=== PATIENT | male | born 1950 | race Caucasian/White ===

== ENCOUNTER 2017-11-20 07:35 | Day surgery (SDC) | payer MEDICARE, OTHER ==
[~2017-11-20] VITALS: Ht 172.7 cm; Wt 97.5 kg
[~2017-11-20 07:35] MED LIST: AMLODIPINE BESYL5 MG PO; CIALIS20 MG PO; DAILY VITAMIN1 EAC2 PO; ELIQUIS5 MG PO; FISH OIL CONC1000 M1 PO; GLUCOSAMINE1000 MG PO; LISINOPRIL5 MG PO; LOSARTAN POTAS100 MG PO; LOSARTAN POTASS50 MG PO; METOPROLOL SUCC50 MG PO; METOPROLOL TART50 MG PO; NORCO 5-325 TA1 EACH PO; SULFAMETHOXAZO1 EAC1 PO; TAMSULOSIN HCL0.4 MG PO
[2017-11-20] MEDS ORDERED: AMLODIPINE BESYL5 MG PO (07:53)
[2017-11-20] MEDS ORDERED: LOSARTAN POTASS25 MG PO (07:54)
--- NOTE | 2017-11-20 09:13 | NUR ---
11/20/17 0913 Alisa Arteaga TO PACU, RESP EVEN UNLABORED.
--- NOTE | 2017-11-20 14:24 | NUR ---
PT IN FOR EGD FOLLOW UP TO PREVIOUS HILL REPAIR. SUPPORTED BY HIS LATESHA, AND BOTH SEEMED PREPARED. FEW QUESTONS, PT REQUESTED PRAYER. WILL FOLLOW NEEDED
--- NOTE | 2017-11-22 18:32 | OR ---
[facility] [address] [place], [place] [address] Signed DATE OF OPERATION: 11/20/2017 SURGEON: Estela Welch MD PREOPERATIVE DIAGNOSES: 1. Known Torrez's esophagus, last upper endoscopy 2011 without dysplasia. 2. History of Hill posterior gastropexy 2004. No clinical complaints of reflux. POSTOPERATIVE DIAGNOSES: 1. Torrez's esophagus and distal esophagus and separate islands of Torrez's esophagus at 17 cm. 2. Somewhat dysmorphic flap valve. 3. Mild gastritis. PROCEDURE: Esophagogastroduodenoscopy with biopsy. ANESTHESIA: Intravenous sedation, fentanyl 100 mcg, Versed 3 mg. INDICATION: This 66-year-old white man is a patient of Dr. Dorado and known to me from the past having undergone Hill repair 13 years ago for intractable reflux and associated Torrez's esophagus. He has no reflux symptoms at this time. He underwent upper endoscopy for surveillance of his Torrez's esophagus last in 2011. He has no associated dysphagia or hematemesis. He has been doing a low FODMAP diet with good benefit (self-directed). He is here for surveillance regarding his Torrez's epithelium. Understand the risks of bleeding, infection, and perforation related to upper endoscopy. He wishes to proceed. FINDINGS: He clearly had Torrez's esophagus in the distal portion as well as an island of Torrez's at 17 cm from the incisors. The flap valve was somewhat dysmorphic and not a typical robust flap valve I would have expected. The stomach had mild gastritis. There was no sign of gastric outlet obstruction or duodenitis. CLOtest was negative. DESCRIPTION OF PROCEDURE: The patient was brought to the endoscopy suite and placed in lateral decubitus position after undergoing topical Hurricaine spray hypopharyngeal anesthesia. A bite block was placed. An Olympus video upper endoscope was passed by hypopharynx after satisfactory Electronically Signed By: ESTELA WELCH MD 11/22/17 1604 PATIENT NAME: NIMO THORNE OPERATIVE REPORT DATE OF : 52 REPORT #: [id number] PHYSICIAN: ESTELA WELCH MD PCP: RICHIE DORADO DO REPORT IS CONFIDENTIAL AND NOT TO BE RELEASED WITHOUT AUTHORIZATION [facility] [address] [place], [place] [address] Signed sedation. The vocal cords appeared normal and scope was advanced to the esophagus. Throughout its length, it was normal except in the distal portion where Torrez's epithelium was clearly identified. The scope was passed into the stomach, which was insufflated with air. Excess gastric juices were suctioned free. There was no sign of bile. Rugal folds were normal. Antral motility was normal. The pylorus was normal. Scope was passed through into the duodenum, which appeared normal. Biopsies were taken of the duodenum to assess for celiac disease. The scope was then withdrawn and biopsy was then taken of the antrum for both KAUSHIK and pathologic testing. Retroflexed views undertaken showing a flap valve, but somewhat dysmorphic compared to what I would have expected. The scope was straightened and withdrawn a bit more and then biopsies taken multiply in the area of the distal esophagus confirming Torrez's esophagus. Narrow band imaging was used as well. The scope was then withdrawn to approximately 17 cm where an island of Torrez's epithelium was noted. This was multiply biopsied as well. The scope was carefully withdrawn with findings of concern. The patient was then taken to recovery room in good condition. CONCLUDING DIAGNOSIS: Persistent Torrez's esophagus in the distal portion and island of Torrez's esophagus at 17 cm from incisors. There is no gross evidence of neoplasm. We will await pathology reports. PLAN: He will return to see me in approximately a month. We will review his pathology reports then an outline of plan for followup. MD AYANA Reaves/ILSAL /[id number] cc: Richie Dorado DO Copies: RICHIE DORADO DO Electronically Signed By: ESTELA WELCH MD 11/22/17 183 PATIENT NAME: NIMO THORNE OPERATIVE REPORT DATE OF : 52 REPORT #: [id number] PHYSICIAN: ESTELA WELCH MD PCP: RICHIE DORADO DO REPORT IS CONFIDENTIAL AND NOT TO BE RELEASED WITHOUT AUTHORIZATION [facility] [address] [place] [address] [place], [place] [address] Signed ~ Electronically Signed By: ESTELA WELCH MD 04/15/18 1832 PATIENT NAME: NIMO THORNE DEVON OPERATIVE REPORT DATE OF : 52 REPORT #: [id number] PHYSICIAN: ESTELA WELCH MD PCP: RICHIE DORADO DO REPORT IS CONFIDENTIAL AND NOT TO BE RELEASED WITHOUT AUTHORIZATION
== END 2017-11-20 09:45 | disposition home or self-care (01) ==
LOC: OPS 07:35 → DS 07:35 → OPS 08:30
PROVIDERS: Surgery
PROC: 0DB78ZX Excision of Stomach, Pylorus, Via Natural or Artificial Opening Endoscopic, Diagnostic (ICD-10-PCS; 2017-11-20)
PROC: 0DB58ZX Excision of Esophagus, Via Natural or Artificial Opening Endoscopic, Diagnostic (ICD-10-PCS; 2017-11-20)
PROC: 0DB98ZX Excision of Duodenum, Via Natural or Artificial Opening Endoscopic, Diagnostic (ICD-10-PCS; principal; 2017-11-20 08:30)
DX: K22.70 Barrett's esophagus without dysplasia (principal); K29.50 Unspecified chronic gastritis without bleeding; K21.0 Gastro-esophageal reflux disease with esophagitis; G47.30 Sleep apnea, unspecified; I48.91 Unspecified atrial fibrillation; Z98.890 Other specified postprocedural states; Z99.89 Dependence on other enabling machines and devices; Z79.899 Other long term (current) drug therapy
CPT/HCPCS: 88305; 99153; G0500; J2250; J3010; J7120

== ENCOUNTER 2018-12-19 09:38 | Emergency (ER) | payer MEDICARE, OTHER ==
[~2018-12-19] VITALS: Ht 172.7 cm; Wt 97.5 kg
[~2018-12-19 09:38] MED LIST changes: +LOSARTAN POTASS25 MG PO
--- NOTE | 2018-12-19 18:27 | EKG ---
[facility] [address] [facility] [place] [address] Signed Atrial fibrillation with premature ventricular or aberrantly conducted complexes Abnormal ECG When compared with ECG of 29-MAY-2016 01:53, Vent. rate has decreased BY [address] no longer depressed in Anterior leads Nonspecific T wave abnormality no longer evident in Inferior leads Confirmed by CLAY RIDDLE MD ([id number]) on 12/19/2018 6:27:00 PM Electronically Signed By: CLAY RIDDLE MD 12/19/18 1827 PATIENT NAME: NIMO THORNE Electrocardiogram DATE OF : 52 PHYSICIAN: CLAY RIDDLE MD REPORT #: [id number] REPORT IS CONFIDENTIAL AND NOT TO BE RELEASED WITHOUT AUTHORIZATION
== END 2018-12-19 14:34 | disposition home or self-care (01) ==
LOC: ED 09:38
DX: I48.91 Unspecified atrial fibrillation (principal); I10 Essential (primary) hypertension; Z85.46 Personal history of malignant neoplasm of prostate; Z79.899 Other long term (current) drug therapy
CPT/HCPCS: 71045; 80053; 84484; 85025; 93005; 93010; 99285-25

== ENCOUNTER 2020-10-26 06:40 | Day surgery (SDC) | payer MEDICARE, OTHER ==
[~2020-10-26] VITALS: Ht 172.7 cm; Wt 98.6 kg
[~2020-10-26 06:40] MED LIST changes: +COQ1050 MG PO; +D3-5050000 UNIT PO; +GLUCOSAMINE CH1 EAC1 PO; +MSM1000 M1 PO; +VENTOLIN HFA18 GM INH; +VITAMIN D250 MC1 PO
--- NOTE | 2020-10-26 08:15 | NUR ---
10/26/20 0815 Yemi Love MD AT BEDSIDE REVIEWING PROCEDURE WITH PT. FALLS ASLEEP EASILY
--- NOTE | 2020-10-26 19:22 | OR ---
[facility] [address] [place], [place] [address] Signed DATE OF OPERATION: 10/26/2020 SURGEON: Estela Welch MD PREOPERATIVE DIAGNOSES: 1. Known Torrez's esophagus. 2. Distant history of Hill posterior gastropexy for reflux (2004). POSTOPERATIVE DIAGNOSES: 1. Extensive Torrez's esophagus, 28 cm and beyond. 2. Marginal flap valve. PROCEDURE: Esophagogastroduodenoscopy with biopsy. ANESTHESIA: Intravenous sedation, fentanyl 100 mcg and Versed 4 mg. INDICATION: This 69-year-old white man is a patient of Dr. Richie Dorado of [facility]. He is known to me from the past. He had undergone Hill posterior gastropexy in 2004 for intractable reflux problems. He had Torrez's esophagus at that time. He has no clinical evidence of reflux type symptoms in any way. He has undergone surveillance upper endoscopy in the past showing no evidence of dysplasia. He is here at this time for surveillance upper endoscopy. He understands the risks of bleeding, infection, perforation, and so on. FINDINGS: Indeed there was Torrez's esophagus well identified from 28 cm from the incisors distalward. The flap valve itself was poor, though patient has no complaints of reflux symptoms otherwise. CLOtest biopsy was negative at 15 minutes. He showed no sign of ulceration or other abnormality. DESCRIPTION OF PROCEDURE: The patient was brought to the endoscopy suite and placed in lateral decubitus position, given lidocaine topical spray anesthetic to the hypopharynx. He was given intravenous sedation to the point of slurred speech and nystagmus on full cardiopulmonary monitoring. A bite block was placed. An Olympus video upper endoscope was passed in the hypopharynx. The vocal cords appeared normal. Scope was advanced to the esophagus throughout its length, it was normal except in the distal portion where there was Electronically Signed By: ESTELA WELCH MD 10/26/201921 PATIENT NAME: NIMO THORNE OPERATIVE REPORT DATE OF : 52 REPORT #: [id number] PHYSICIAN: ESTELA WELCH MD PCP: RICHIE DORADO DO REPORT IS CONFIDENTIAL AND NOT TO BE RELEASED WITHOUT AUTHORIZATION [facility] [address] [place], [place] [address] Signed obvious Torrez's epithelium. Islands of mucosa interspersed with Torrez's, changes were easily identified. There was no sign of stricture or nodular change or evidence in any way of malignancy. The scope was passed to the stomach, which was insufflated with air. Rugal folds were normal as was the antral motility. The pylorus was normal. Scope was passed through into the duodenum, which was normal. Biopsies were taken of the duodenum. The scope was withdrawn. A biopsy was then taken of the antrum for both KAUSHIK and pathologic testing. Retroflexed view was undertaken showing a likely degraded anti-reflux operation. There was no sign of inflammation or anything of that sort. The scope was withdrawn and distal esophageal examination showed Torrez's epithelium and multiple biopsies were taken at various levels. The scope was further withdrawn. There was no evidence of more proximal Torrez's epithelium. The scope was removed. The patient was taken to recovery room in good condition. CONCLUDING DIAGNOSIS: Torrez's esophagus without evidence of neoplastic change. Marginal flap valve, though clinically without any reflux symptoms. PLAN: Consideration might be made for PPI use on the basis of the Torrez's and the marginal appearance of the flap valve currently; one could consider avoidance of medication since he is symptom free however. We will see him back in the office and review these options as well. MD AYANA Reaves/ILSAL /[id number] cc: Richie Dorado DO Copies: RICHIE DORADO DO ~ Electronically Signed By: ESTELA WELCH MD 10/26/201921 PATIENT NAME: NIMO THORNE OPERATIVE REPORT DATE OF : 52 REPORT #: [id number] PHYSICIAN: ESTELA WELCH MD PCP: RICHIE DORADO DO REPORT IS CONFIDENTIAL AND NOT TO BE RELEASED WITHOUT AUTHORIZATION
--- NOTE | 2020-10-29 15:43 | PATH ---
[facility] [address] [place], [place] [address] Signed SPECIMEN(S): A DUODENAL BIOPSY SPECIMEN(S): B ANTRUM/PYLORUS BIOPSY SPECIMEN(S): C LOWER ESOPHAGEAL BIOPSY SPECIMEN SOURCE: A. DUODENAL BIOPSY B. ANTRUM/PYLORUS BIOPSY C. LOWER ESOPHAGEAL BIOPSY CLINICAL HISTORY: GERD, known Torrez's. Post: Torrez's esophagus. MICROSCOPIC DESCRIPTION: A, B. Histologic sections of all submitted blocks are examined by light microscopy. These findings, together with the gross examination, support the pathologic diagnosis. Regarding specimen C: Sections demonstrate fragments of squamocolumnar mucosa with extensive intestinal metaplasia and a background of chronic inflammation. The findings are compatible with Torrez's esophagus. NAL:cml FINAL PATHOLOGIC DIAGNOSIS: A. Duodenum, biopsy: - Duodenal mucosa with no histopathologic abnormality. - Negative for increased intraepithelial lymphocytes. - Negative for dysplasia or malignancy. B. Stomach, antrum/pylorus, biopsy: - Oxyntic mucosa with focal mucosal capillary congestion. - Negative for Helicobacter organisms on HE stain. - Negative for dysplasia or malignancy. C. Esophagus, lower, biopsy: - Torrez's esophagus. - Negative for dysplasia or malignancy. NAL:cml:C2NR GROSS DESCRIPTION: Three specimens are received in three containers, labeled "MS." A. The specimen, labeled "MS, duodenum biopsy," is received in formalin and consists of three amaro soft tissue fragment(s) that measure 0.1-0.2 cm in greatest dimension. The specimen is entirely submitted in cassette (A1). PATIENT NAME: NIMO THORNE PATHOLOGY DATE OF : 52 REPORT #: [id number] PHYSICIAN: MIKEL ANSARI PCP: YSABEL DORADO DO REPORT IS CONFIDENTIAL AND NOT TO BE RELEASED WITHOUT AUTHORIZATION [facility] [address] [place], [place] [address] Signed B. The specimen, labeled "MS, antrum biopsy," is received in formalin and consists of two amaro soft tissue fragment(s) that measure 0.2-0.5 cm in greatest dimension. The specimen is entirely submitted in cassette (B1). C. The specimen, labeled "MS, Torrez's mucosa, lower esophagus biopsy," is received in formalin and consists of seven amaro soft tissue fragment(s) that measure 0.1-0.3 cm in greatest dimension. The specimen is entirely submitted in cassette (C1). JS (under the direct supervision of a pathologist) The Gross Description was prepared using a voice recognition system. The report was reviewed for accuracy; however, sound-alike word errors, addition and/or deletions may occur. If there is any question about this report, please contact Client Services. PERFORMING LABORATORY: The technical component was performed by [facility], [address] [place] [id number] (Pump Oiler: T[place] Agrawal MD; CLIA# [id number]). Professional interpretation was performed by [facility], [address] [place] [id number] (CLIA# [id number]). Diagnostician: Devora Shukla MD Pathologist Electronically Signed 10/29/2020 Copies: ~ PATIENT NAME: NIMO THORNE PATHOLOGY DATE OF : 52 REPORT #: [id number] PHYSICIAN: MIKEL ANSARI PCP: YSABEL DORADO DO REPORT IS CONFIDENTIAL AND NOT TO BE RELEASED WITHOUT AUTHORIZATION
== END 2020-10-26 08:42 | disposition home or self-care (01) ==
LOC: DS 06:40 → OPS 06:40 → DS 06:45 → OPS 08:42 → DS 11:00
PROVIDERS: ATTEND Surgery
PROC: 0DB58ZZ Excision of Esophagus, Via Natural or Artificial Opening Endoscopic (ICD-10-PCS; principal; 2020-10-26 06:45)
DX: K22.70 Barrett's esophagus without dysplasia (principal); Z79.01 Long term (current) use of anticoagulants; I48.91 Unspecified atrial fibrillation; G47.30 Sleep apnea, unspecified; I10 Essential (primary) hypertension; Z85.46 Personal history of malignant neoplasm of prostate
CPT/HCPCS: 99153; G0500; J2250; J3010; J7121

== ENCOUNTER 2024-11-15 06:00 | Day surgery (SDC) | payer MEDICARE, OTHER ==
[2024-11-09 16:03] VITALS: BP 117/63
[~2024-11-15] VITALS: Ht 170.2 cm; Wt 94.1 kg
[~2024-11-15 06:00] MED LIST changes: +AMBIEN10 MG PO; +ATORVASTATIN CA20 MG PO; +HYDRALAZINE HCL50 MG PO; +LACTATED RINGER'S 1,000 ML IV SCH; +OMEPRAZOLE20 MG PO; +OXYBUTYNIN CHLOR5 M1 PO; +TROSPIUM CHLORI20 MG PO; +VITAMIN C60 MG PO; +VITAMIN D325 MC4 PO
[2024-11-15 06:16] VITALS: BP 135/86
[2024-11-15] MEDS ORDERED: DEXAMETHASONE SOD PHOS 4 MG/ML VIAL ONE (06:59)
[2024-11-15] MEDS ORDERED: fentaNYL citrate 100 MCG/2 ML VIAL ONE (06:59)
[2024-11-15] MEDS ORDERED: FAMOTIDINE 20 MG/ 2 ML VIAL ONE (06:59)
[2024-11-15] MEDS ORDERED: SUGAMMADEX SODIUM 200 MG/2 ML ML ONE (06:59)
[2024-11-15] MEDS ORDERED: MIDAZOLAM HCL 2 MG/2 ML VIAL ONE (06:59)
[2024-11-15] MEDS ORDERED: SUCCINYLCHOLINE IN 0.9% NACL 200 MG/10 ML SYRINGE ONE (06:59)
[2024-11-15] MEDS ORDERED: METOCLOPRAMIDE HCL 10 MG/2 ML SDV ONE (06:59)
[2024-11-15] MEDS ORDERED: KETOROLAC TROMETHAMINE 30 MG/ML VIAL ONE (06:59)
[2024-11-15] MEDS ORDERED: LIDOCAINE HCL 4% 5 ML AMP ONE (06:59)
[2024-11-15] MEDS ORDERED: ROCURONIUM BROMIDE 50 MG/5 ML SYR ONE (06:59)
[2024-11-15] MEDS ORDERED: ondansetron HCL 4 MG/2 ML VIAL ONE (06:59)
[2024-11-15] MEDS ORDERED: LACTATED RINGER'S 1,000 ML IV ONE (06:59)
[2024-11-15] MEDS ORDERED: propofoL 200 MG/20 ML VIAL ONE (06:59)
[2024-11-15] MEDS ORDERED: IBLOOD GLUCOSE TEST STRIP 1 EA TEST VI PRN ×2 (07:00→08:30)
[2024-11-15] MEDS ORDERED: CEFAZOLIN SODIUM 2 GM/20 ML SYR IV SCH (07:00)
[2024-11-15] MEDS ORDERED: LIDOCAINE HCL 1% 5 ML SDV INJ ONE (07:00)
--- NOTE | 2024-11-15 07:44 | NUR ---
VISITED DURING SPIRITUAL CARE ROUNDS. PT SUPPORTED BY SPOUSE IN ROOM. BOTH IN OVERALL GOOD SPIRITS, NO IMMEDIATE CONCERNS. SWITCH OPERATORS SUPERVISOR PROVIDED SUPPORTIVE PRESENCE, HOSPITALITY, PRAYER, FACILITATED INTERACTION WITH THERAPY ANIMAL. PT AND SPOUSE EXPRESSED GRATITUDE, SMILEY SOURCE OF STRENGTH.
[2024-11-15] MEDS ORDERED: ondansetron HCL 4 MG/2 ML VIAL IV PRN (08:30)
[2024-11-15] MEDS ORDERED: fentaNYL citrate 50 MCG/ML SDV IV PRN (08:30)
[2024-11-15] MEDS ORDERED: droPERidol 5 MG/2 ML VIAL IV PRN (08:30)
[2024-11-15] MEDS ORDERED: METOCLOPRAMIDE HCL 10 MG/2 ML SDV IV PRN (08:30)
[2024-11-15] MEDS ORDERED: MORPHINE SULFATE 10 MG/ML VIAL IV PRN (08:30)
[2024-11-15] MEDS ORDERED: NALOXONE HCL 0.4 MG SYR IV PRN ×2 (08:30→10:15)
[2024-11-15] MEDS ORDERED: PROCHLORPERAZINE EDISYLATE 10 MG/2 ML VIAL IV PRN (08:30)
[2024-11-15] MEDS ORDERED: EPINEPHRINE 2.25% 0.5 ML AMP ONE (09:44)
--- NOTE | 2024-11-15 10:03 | NUR ---
11/15/24 1003 Sheets,Kathy 0943 PT ARRIVED TO PACU ON ON 10L VIA MASK, SMALL WHEEZE NOTED AND CRYSTAL GROWING TECHNICIAN AWARE. O2 SAT MID 90S. JAW THRUST USED TO MAINTAIN AIRWAY. 0947 PT STARTS SWALLOWING AND ORAL AIRWAY REMOVED, BREATHING TREATMENT START BY CRYSTAL GROWING TECHNICIAN AND O2 DECREASED TO 6L. HO BINCREASED SLIGHTLY. 0958 JAW THRUST NO LONGER NEEDED, PT HEAD TURNED TO LEFT SIDE AND PT MAINTAIN AIRWAY WITH SMALL AMOUNT OF SNORING OFF AND ON. BREAHTING TREATMENT REMOVED AND 6L VIA MASK IN PLACE. RESP EVEN AND UNALABORED. NO WHEEZE NOTED. 1000 PT REACTIVE TO TACTILE STIMULI AND RN TRYING TO REOREINT PT TO PACU. PT EASILY FALLS BACK TO SLEEP WITH SMALL AMOUNT OF SNORING NOTED.
[2024-11-15] MEDS ORDERED: IBUPROFEN600 MG PO (10:06)
[2024-11-15] MEDS ORDERED: OXYCODON-ACETA1 EAC2 PO (10:07)
[2024-11-15] MEDS ORDERED: ACETAMINOPHEN500 MG PO (10:07)
[2024-11-15] MEDS ORDERED: LACTATED RINGER'S 1,000 ML IV SCH (10:15)
[2024-11-15] MEDS ORDERED: OXYCODONE/APAP 7.5/325 TAB PO PRN (10:15)
[2024-11-15] MEDS ORDERED: ACETAMINOPHEN 500 MG TAB PO PRN (10:15)
[2024-11-15] MEDS ORDERED: IBUPROFEN 600 MG TAB PO PRN (10:15)
[2024-11-15] MEDS ORDERED: ACETAMINOPHEN 1,000 MG/100 ML VIAL ONE (10:19)
[2024-11-15] MEDS ORDERED: ACETAMINOPHEN 1,000 MG/100 ML VIAL IV ONE (10:30)
[2024-11-15 10:50] VITALS: BP 141/76
[2024-11-15 11:47] VITALS: BP 137/71
--- NOTE | 2024-11-15 15:04 | NUR ---
CATY 1050-PT BACK TO ROOM FROM PACU ON 2L VIA ME. RECEIVED REPORT FROM SHAYE HIGH. PT IS AWAKE. RESP EVEN AND UNLABORED. DRESSING IS CLEAN, DRY, AND INTACT. ABDOMINAL BINDER IN PLACE. PT DRINKIN WATER AND EATING PUDDING. NO OTHER NEEDS AT THIS TIME. CALL [facility] WITHIN REACH.
--- NOTE | 2024-11-15 15:06 | NUR ---
LE 1105-PT UP TO RESTROOM WITH 1 RN ASSIST. GAIT UNSTEADY BUT TOLERATED WELL. PT ABLE TO VOID. LE 1110-PT BACK TO ROOM. NO OTHER NEEDS AT THIS TIME. CALL [facility] WITHIN REACH.
--- NOTE | 2024-11-15 15:09 | NUR ---
LE 1147-PT LAYING IN BED. RESP EVEN AND UNLABORED. RATES PAIN 3/10 AND DENIES NAUSEA. DRESSING IS CLEAN, DRY, AND INTACT. ABDOMINAL BINDER IN PLACE. NO OTHER NEEDS AT THIS TIME. CALL [facility] WITHIN REACH.
--- NOTE | 2024-11-15 15:19 | NUR ---
LE 1217-PT UP TO RESTTOOM. GAIT UNSTEADY BUT TOLERATED WELL. LE 1220-PT BACK TO ROOM. PT READY TO GO HOME. PT TO GET DRESSED. IN ROOM TO HELP PT.
--- NOTE | 2024-11-15 15:20 | NUR ---
1235-WENT OVER DISCHARGE INSTRUCTIONS WITH PT AND . ALL QUESTIONS ANSWERED. PT AMBULATES TO WHEELCHAIR AND RIDE PROVIDED OUT OF DAY SURGERY.
[2024-11-15] MEDS ORDERED: SEVOFLURANE 250 ML BTL INH ONE (16:27)
--- NOTE | 2024-11-16 19:47 | OR ---
[facility] [address] [place], [place] [address] Signed DATE OF OPERATION: 11/15/2024 SURGEON: Estela Welch MD PREOPERATIVE DIAGNOSES: 1. Recurrent incarcerated incisional hernia. 2. Obesity. POSTOPERATIVE DIAGNOSES: 1. Recurrent incarcerated incisional hernia, fascial defect 11 cm. 2. Morbid obesity. PROCEDURE: Repair of incarcerated incisional hernia, 11 cm defect including implantation of Prolene mesh (underlay technique and fascial reapproximation). ANESTHESIA: General endotracheal, Estela Bone CRNA and local 10 mL of 0.25% Marcaine with epinephrine. INDICATION: This 73-year-old white man is known to me long-standing having undergone Hill posterior gastropexy in approximately 2003. He developed an incisional hernia in 2005, which required repair with implantation of mesh in the region of the umbilicus. He is known to have Torrez's esophagus and is under surveillance for that. He was identified as having a hernia in the mid incisional area, considered likely a recurrent incisional hernia. He does have obesity as well. He is chronically anticoagulated with Eliquis for atrial fibrillation as well. He is now here to undergo repair of the recurrent incisional hernia which is located cephalad to the umbilicus itself. He and his family understand the risk of bleeding, infection, recurrent hernia, and other unforeseen complications related to repair. Understanding this, he wishes to proceed. FINDINGS: The herniated viscus was dominantly the omentum, the size of a softball, a small amount of small bowel as well. The fascial defect in aggregate was 11 cm. The previous repair with mesh inferiorly was certainly well secured. Repair consisted of reduction of the herniated omentum and small bowel, development of the properitoneal space. Closure of the peritoneum to provide a barrier of the intra-abdominal viscera from implantation of mesh in the properitoneal space. Medialization and closure of the linea alba was able to be accomplished as well. Electronically Signed By: ESTELA WELCH MD 11/16/24 1947 PATIENT NAME: NIMO THORNE OPERATIVE REPORT DATE OF : 52 REPORT #: [id number] PHYSICIAN: ESTELA WELCH MD PCP: YSABEL DORADO DO REPORT IS CONFIDENTIAL AND NOT TO BE RELEASED WITHOUT AUTHORIZATION [facility] [address] [place], [place] [address] Signed DESCRIPTION OF PROCEDURE: The patient was brought to the operating room, given a general endotracheal anesthetic. Preoperative antibiotic Ancef was given. Sequential compression device stockings were used. The abdomen was clipped and prepared with chlorhexidine solution and draped sterilely. The palpable hernia was cephalad to the umbilicus. The midline incision from the past extended from the xiphoid to around the umbilicus. Quite notably his xiphoid was impressively elongated approximately 6 cm in length. The defect appeared to be cephalad to the umbilicus. After sterile preparation with chlorhexidine solution, an incision was made in the midline cephalad to the umbilicus and dissection was carried through the subcutaneous tissue with electrocautery. Promptly noted was a hernia sac, which had been divided showing copious amount of healthy omentum. The herniated tissue was freed from surrounding subcutaneous tissue identifying the fascial defect, which appeared to be quite chronic. Smaller defects were noted inferiorly towards the area of prior mesh repair in the region of the umbilicus. Ultimately, all of the herniated omentum and small portion of bowel, which was also herniated was freed and allowed to return to the peritoneal cavity. The fascial defect was physically measured and found to be 11 cm. The fascial edges were surprisingly healthy overall. The peritoneum was elevated from the edge of the fascial defect and dissected with meticulous blunt dissection circumferentially providing a mobile piece of peritoneum to apply over the intra-abdominal viscera. The peritoneum was closed with running 2-0 Vicryl suture providing avascular plane between the intra-abdominal viscera and the overlying fascia. Dissection was taken laterally between 4 and 6 cm. The segment of Prolene Prograf mesh was cut to an elliptical configuration and carefully insinuated into the properitoneal space. It was secured superiorly, inferiorly and on the left lateral aspect with interrupted 0 Prolene sutures with Prolene pledgets. The Prograf itself densely attached to the overlying fascia as well. Additional sutures were placed on the right side after position change at the table and additional sutures placed, all of them with 0 Prolene and Prolene pledgets. This covered the defect quite nicely. The midline fascial defect was then reapproximated with interrupted 0 Prolene sutures with Prolene pledgets in a vertical mattress configuration. This allowed for complete closure of the fascia over the mesh. Irrigation was undertaken and 10 mL of 0.25% Marcaine with epinephrine was injected locally. Subcutaneous tissue and fascial edges were closed with 2-0 Vicryl obliterating the space. The skin was then closed with running subcuticular 3-0 Vicryl. Steri-Strips were applied as was an Acticoat dressing. An abdominal binder was placed and the patient ultimately extubated and transferred to the recovery room in good condition having suffered no complication. Blood loss was less than 20 mL. Sponge, needle, and instrument counts reported as correct x3. Electronically Signed By: ESTELA WELCH MD 11/16/24 1947 PATIENT NAME: NIMO THORNE OPERATIVE REPORT DATE OF : 52 REPORT #: [id number] PHYSICIAN: ESTELA WELCH MD PCP: YSABEL DORADO DO REPORT IS CONFIDENTIAL AND NOT TO BE RELEASED WITHOUT AUTHORIZATION [address] [place], [place] [address] Signed MD AYANA Reaves/MODL /[id number] cc: Georgiana Chappell MD [place], [place] Copies: ~ Electronically Signed By: ESETLA WELCH MD 11/16/24 1947 PATIENT NAME: NIMO THORNE OPERATIVE REPORT DATE OF : 52 REPORT #: [id number] PHYSICIAN: ESTELA WELCH MD PCP: YSABEL DORADO DO REPORT IS CONFIDENTIAL AND NOT TO BE RELEASED WITHOUT AUTHORIZATION
== END 2024-11-15 12:35 | disposition home or self-care (01) ==
LOC: DS 06:00
PROVIDERS: ATTEND Surgery
PROC: 0WUF0JZ Supplement Abdominal Wall with Synthetic Substitute, Open Approach (ICD-10-PCS; principal; 2024-11-15 07:30)
DX: K43.0 Incisional hernia with obstruction, without gangrene (principal); E66.01 Morbid (severe) obesity due to excess calories; K21.9 Gastro-esophageal reflux disease without esophagitis; I10 Essential (primary) hypertension; I48.20 Chronic atrial fibrillation, unspecified; Z79.899 Other long term (current) drug therapy; Z68.31 Body mass index [BMI] 31.0-31.9, adult
CPT/HCPCS: 00830; C1781; J0131; J0330; J0690; J1100; J1885; J2250; J2405; J2704; J2765; J3010; J3490; J7121